=== PATIENT | male | born 1950 | race Caucasian/White ===

== ENCOUNTER 2018-10-07 10:05 | Inpatient (IN) | payer SELFPAY ==
[~2018-10-07] VITALS: Ht 162.6 cm; Wt 98.4 kg
[~2018-10-07 10:05] MED LIST: ASPI81CH PO; ATOR20 PO; COLCHICINE0.6 MG PO; METO25 PO
[2018-10-07 10:24] LABS: BASOPHILS ABSOLUTE AUTO 0.13 K/mm3 (0.00-0.23); BASOPHILS PERCENT AUTO 1 % (0-2); EOSINOPHILS ABSOLUTE AUTO 0.32 K/mm3 (0.00-0.68); EOSINOPHILS PERCENT AUTO 3 % (0-6); Hematocrit 46.9 % (37.0-53.0); IMMATURE GRAN ABSOLUTE AUTO 0.06 K/mm3 (0.00-0.10); IMMATURE GRAN PERCENT AUTO 1 % (0-1); LYMPHOCYTES ABSOLUTE AUTO 2.76 K/mm3 (0.84-5.20); LYMPHOCYTES PERCENT AUTO 24 % (21-46); MONOCYTES ABSOLUTE AUTO 0.81 K/mm3 (0.16-1.47); MONOCYTES PERCENT AUTO 7 % (4-13); Mean Corpuscular Volume 94 fL (80-100); Mean Platelet Volume 10.1 fL (9.1-12.4); NEUTROPHILS ABSOLUTE AUTO 7.65 K/mm3 (1.96-9.15); NEUTROPHILS PERCENT AUTO 65 % (41-73); Platelet Count 265 K/mm3 (150-400); RDW Coefficient Variation 16.3 % (11.7-14.2); RDW Standard Deviation 55.2 fL (35.1-46.3); White Blood Cell Count 11.73 K/mm3 (4.00-11.30)
[2018-10-07 10:35] LABS: PCO2 Arterial 46.4 mmHg (35-45); PO2 Arterial 254 mmHg (80-100); pH Blood Arterial 7.33 (7.35-7.45)
[2018-10-07 10:44] LABS: Alanine Aminotransfer (ALT/SGP 42 U/L (12-78); Albumin, Blood 3.8 g/dL (3.4-5.0); Alk Phos 107 U/L (50-136); Anion Gap 11 mmol/L (6-16); Aspartate Aminotrans (AST/SGOT 36 U/L (12-37); Bilirubin, Total 0.8 mg/dL (0.1-1.0); Blood Urea Nitrogen 13 mg/dL (8-24); Bun/Creatinine Ratio 15.2 (12.0-20.0); CO2, Blood 26 mmol/L (21-32); Calcium, Blood 8.6 mg/dL (8.5-10.1); Chloride, Blood 103 mmol/L (98-108); Creatinine, Blood 0.86 mg/dL (0.60-1.20); Globulin, Blood 3.7 g/dL (2.2-4.0); Glomerular Filtration Rate >60 (60-); Glucose, Blood 193 mg/dL (70-99); Potassium, Blood 3.6 mmol/L (3.5-5.5); Sodium, Blood 140 mmol/L (136-145); Total Protein, Blood 7.5 g/dL (6.4-8.2)
[2018-10-07 10:50] LABS: Calcium, Ionized (POC) 1.06 mmol/L (1.10-1.46); Chloride (POC) 101 mmol/L (98-108); Creatinine (POC) 0.9 mg/dL (0.8-1.3); Glucose (ISTAT POC) 234 mg/dL (70-99); Potassium (POC) 3.7 mmol/L (3.5-5.5); Sodium (POC) 137 mmol/L (135-148); Total CO2 (POC) 24 mmol/L (21-32)
[2018-10-07] MEDS ORDERED: ACET500 PO (11:16)
[2018-10-07] MEDS ORDERED: ELIQUIS5 MG PO (11:17)
[2018-10-07] MEDS ORDERED: ASCO500 PO (11:17)
[2018-10-07] MEDS ORDERED: ALLO300 PO (11:17)
[2018-10-07] MEDS ORDERED: FURO20 PO (11:18)
[2018-10-07] MEDS ORDERED: CHOL10002 PO (11:18)
[2018-10-07] MEDS ORDERED: Lopressor 25 mg25 MG PO (11:18)
[2018-10-07] MEDS ORDERED: POTCHL10ER PO (11:19)
--- NOTE | 2018-10-07 14:20 | NUR ---
Echocardiogram completed.
[2018-10-07] MEDS ORDERED: MEDROL PO (14:58)
[2018-10-07] MEDS ORDERED: Amoxicillin500 MG PO (15:00)
[2018-10-07] MEDS ORDERED: BENMENLOZ PO (15:01)
--- NOTE | 2018-10-07 16:21 | NUR ---
NURSING PCU DAYSHIFT SUMMARY: Assumed care of pt at approx 1350. Arrived from ER via gurney accompanied by RN, RT, and family x2. Xfer w/SBA to unit bed, tolerated fairly well. Denies any pain/discomfort. Skin is intact w/no breakdown noted. Afib w/HR 80's, no c/o CP/pressure, SBP 90's at this time, murmur noted, 1-2+ BLE pitting edema (R>L). L/S w/bibasilar crackles, respirations shallow, dyspnea w/minimal exertion, bipap in place, continuous bedside O2 monitoring, occ [employer] cough. Abd obese, SNT, BT+, voiding clear/yellow urine using urinal. PIV x1, s/l. No acute changes since arrival to the unit. Pt was able to tolerate a bipap break for approx 5 min on RA w/O2 sat maintaining mid 90's. Requested bipap to be placed back on with c/o increasing dyspnea. Pt continues to rest comfortably at this time. Call light in reach, pt and family have demonstrated appropriate use. No s/s of acute distress, cont to monitor until rpt is given to NOC RN.
[2018-10-07 17:00] LABS: Creatine Kinase MB 2.1 ng/mL (0.0-3.6); Creatine Kinase MB Index 3.3 (0.0-4.0); Troponin I 0.106 ng/mL (0.000-0.040)
--- NOTE | 2018-10-07 20:26 | NUR ---
PM NOTE. ASSUMED CARE OF PT APROX 1900, PT IS A&Ox4 AND SBA IN THE ROOM, PT WAS ADMITTED DUE TO CHF, AFIB/FLUTTER AND HYPOXIA, PT IS ON BIPAP AT 35% AND 14/7. PT HAS BEEN HYPOTENSIVE, CURRENT BP IS 85/63. FAMILY IS AT THE BEDSIDE. TELE INTACT, AFLUTTER IN THE 70'S, 1+ EDEMA TO THE PT'S LLE AND 2+ TO THE RLE. PT'S L/S CLEAR T/O WITH CRACKELS IN THE BASES. BT PRESENT AND HYPERACTIVE, ABD IS SOFT AND NONTENDER TO PALP. CALL LIGHT IN REACH, BED IS LOCKED AND LOW WILL CONTINUE TO MONITOR.
[2018-10-07 23:06] LABS: Troponin I 0.087 ng/mL (0.000-0.040)
[2018-10-07 23:07] LABS: Creatine Kinase MB 1.9 ng/mL (0.0-3.6); Creatine Kinase MB Index 2.8 (0.0-4.0)
[2018-10-08 04:13] LABS: Anion Gap 8 mmol/L (6-16); Blood Urea Nitrogen 14 mg/dL (8-24); Bun/Creatinine Ratio 16.8 (12.0-20.0); CHOL/HDL RATIO 3.7; CO2, Blood 29 mmol/L (21-32); Calcium, Blood 8.2 mg/dL (8.5-10.1); Chloride, Blood 104 mmol/L (98-108); Cholesterol 137 mg/dL (50-200); Creatinine, Blood 0.83 mg/dL (0.60-1.20); Glomerular Filtration Rate >60 (60-); Glucose, Blood 87 mg/dL (70-99); HDL Cholesterol 37 mg/dL (>39); LDL/HDL RATIO 2.3; Low Density Lipoprotein Chol 86 mg/dL (0-110); Magnesium, Blood 2.2 mg/dL (1.6-2.4); Phosphorus, Blood 3.2 mg/dL (2.5-4.9); Potassium, Blood 3.5 mmol/L (3.5-5.5); Sodium, Blood 141 mmol/L (136-145); Triglycerides 70 mg/dL (30-160); Very Low Density Lipoprot Chol 14 mg/dL (6-32)
[2018-10-08 04:55] LABS: PCO2 Arterial 45.7 mmHg (35-45); PO2 Arterial 107 mmHg (80-100); pH Blood Arterial 7.43 (7.35-7.45)
--- NOTE | 2018-10-08 05:58 | NUR ---
SHIFT SUMMARY. NO ACUTE CHANGES NOTED THIS SHIFT, PT'S VS HAVE BEEN STABLE. PT HAS BEEN ON BIPAP MOST OF THIS SHIFT. PT TOOK A BREAK FOR APROX 1 HOUR, DURING THIS TIME HE WAS ON 4 L NC W/SATS >90%. PT AMBULATED TO THE BATHROOM W/SBA TO PERFORM PM CARE, PT TOLERATED THIS WELL. KNEE HIGH SHANDRA HOSE WERE PLACED ON THE PT PER ORDERS. CALL LIGHT IN REACH, BED IS LOCKED AND LOW WILL CONTINUE TO MONITOR.
--- NOTE | 2018-10-08 08:05 | NUR ---
NURSING PCU DAYSHIFT: Assumed care of pt at approx 0700. A/O, pleasant, cooperative w/care. Denies any pain/discomfort. Able to assist w/repositioning, ambulates w/SBA needed only for line management. Skin is intact w/no breakdown noted. Tele in place, afib w/HR 80's, murmur noted, no c/o CP/pressure, BP stable, 1+ BLE edema, pamela hose in place. L/S w/bibasilar crackles, dyspnea w/minimal exertion, O2 sat mid 90's on 4L NC during bipap break, occ PHYSIOTHERAPY ASSISTANT cough. Abd obese, SNT, BT+, voiding w/o difficulty using urinal. PIV x1, s/l. No s/s of acute distress at this time. Pt states that he is continuing to feel more improved than previous day though is not able to tolerate significant time off the bipap. Family at bedside, update provided. Call light in reach, awaiting rounding from PMD, cont to monitor for changes.
--- NOTE | 2018-10-08 14:56 | NUR ---
NURSING PCU DAYSHIFT COBRA TRANSFER SUMMARY: No acute changes noted t/o the a.m. Seen by PMD, new d/o received, cardiology consult called. After physicians met w/pt and family, it was determined that transfer to higher level of care was indicated. Hep gtt initiated, accepting montessori paraprofessional received, bed assignment received, transportation scheduled. Pt and family deny any questions/needs at this time, call light in reach, cont to monitor until EMS arrives for transport.
== END 2018-10-08 15:40 | disposition short-term general hospital (02) | DRG 291 ==
LOC: ER 10:05 → ICUW 11:38 → PCU 11:38
PROVIDERS: Internal Medicine; ADMIT Internal Medicine
PROC: 5A09357 Assistance with Respiratory Ventilation, Less than 24 Consecutive Hours, Continuous Positive Airway Pressure (ICD-10-PCS; principal; 2018-10-07)
DX: I11.0 Hypertensive heart disease with heart failure (principal); J96.01 Acute respiratory failure with hypoxia; J96.02 Acute respiratory failure with hypercapnia; I50.23 Acute on chronic systolic (congestive) heart failure; I35.0 Nonrheumatic aortic (valve) stenosis; I71.2 Thoracic aortic aneurysm, without rupture; E66.01 Morbid (severe) obesity due to excess calories; G47.33 Obstructive sleep apnea (adult) (pediatric); E11.9 Type 2 diabetes mellitus without complications; E78.5 Hyperlipidemia, unspecified; M10.9 Gout, unspecified; F43.10 Post-traumatic stress disorder, unspecified; I25.5 Ischemic cardiomyopathy; I95.9 Hypotension, unspecified; I48.0 Paroxysmal atrial fibrillation; Z79.01 Long term (current) use of anticoagulants; Z79.899 Other long term (current) drug therapy
CPT/HCPCS: 36415; 36600; 71045; 80047; 80048; 80053; 80061; 82550; 82553; 82803; 82947; 83036; 83735; 83880; 84100; 84443; 84484; 85014; 85025; 85730; 93005; 93010; 93306; 94640; 94660; 94762; 96361; 96374; 96375; 99285-25; J1644; J1940; J7120